=== PATIENT | male | born 1980 | race Caucasian/White ===

== ENCOUNTER 2017-09-24 08:29 | Outpatient (CLI) | payer OTHER ==
[2017-09-24] MEDS ORDERED: BARIUM SULFATE 135 ML SUSP.RECON (E-Z-HD) PO ONE (08:50)
== END 2017-09-24 20:16 | disposition home or self-care (01) ==
LOC: SRD 08:29
PROVIDERS: ATTEND Otolaryngology Plastic Surgery within the Head & Neck
DX: R13.10 Dysphagia, unspecified (principal)
CPT/HCPCS: 74220-TC